=== PATIENT | female | born 1990 | race Two or more races ===

== ENCOUNTER 2018-02-06 06:13 | Emergency (ER) | payer OTHER ==
[2018-02-06 07:13] VITALS: BMI 29.2
[2018-02-06] MEDS ORDERED: ACETAMINOPHEN 325 MG TABLET (FP) PO ONE (09:15)
[2018-02-06] MEDS ORDERED: ACETAMINOPHEN 325 MG TABLET (FP) ONE (09:16)
[2018-02-06 09:36] LABS: BASO % 0.6 % (0-2.0); EOS % 3.2 % (0-4.5); HEMATOCRIT 38.2 % (32.4-45.2); HEMOGLOBIN 12.9 GM/dL (10.7-15.3); LYMPH % 26.6 % (8-40); MCH 33.4 pg (25.7-33.7); MCHC 33.8 g/dl (32.0-36.0); MEAN CELL VOLUME 98.7 fl (80-96); MEAN PLT VOLUME 10.7 fl (7.5-11.1); MONO % 7.3 % (3.8-10.2); NEUT % 62.3 % (42.8-82.8); PLATELET COUNT 129 K/MM3 (134-434); RBC 3.86 M/mm3 (3.60-5.2); RDW 12.1 % (11.6-15.6); WHITE BLOOD COUNT 4.2 K/mm3 (4.0-10.0)
--- NOTE | 2018-02-06 09:40 | EKG ---
Test Reason : Blood Pressure : / mmHG Vent. Rate : 069 BPM Atrial Rate : 069 BPM P-R Int : 152 ms QRS Dur : 082 ms QT Int : 376 ms P-R-T Axes : 040 023 042 degrees QTc Int : 402 ms NORMAL SINUS RHYTHM POSSIBLE LEFT ATRIAL ENLARGEMENT BORDERLINE ECG WHEN COMPARED WITH ECG OF 10-JUN-2016 10:08, NO SIGNIFICANT CHANGE WAS FOUND Confirmed by SERGE ALEXANDER MD ([id number]) on 02/06/2018 9:40:15 AM Referred By: Confirmed By:SERGE ALEXANDER MD
[2018-02-06 10:03] LABS: ALBUMIN 3.4 g/dl (3.4-5.0); ANION GAP 5 (8-16); BLOOD UREA NITROGEN 13 mg/dL (7-18); CHLORIDE 108 mmol/L (98-107); CO2 27 mmol/L (21-32); GLUCOSE,RANDOM 94 mg/dL (74-106); POTASSIUM 4.6 mmol/L (3.5-5.1); SODIUM 140 mmol/L (136-145)
--- NOTE | 2018-02-06 10:07 | PDOC ---
History of Present Illness <Juan Jose Min - Last Filed: 02/06/18 11:10> - History of Present Illness Initial Comments: 02/06/18 10:01 "The patient is a 27 year old female with a significant PMH of Lupus who presents to the emergency department with back pain, chest pain, and left shoulder soreness beginning approximately yesterday. She reports left upper back pain that radiates to her chest and is worse with movement and lying down. Pt denies SOB. Denies pleuritic chest pain. Denies F/C. Denies cough. The patient states she has had similar chest and back pain intermittently over the past few years, which usually resolves on its own. The patient denies taking any medications for pain. The patient denies recent travel or sick contacts. She denies leg swelling. Is not currently on any medications. The patient denies shortness of breath, headache and dizziness. Denies fever, chills, nausea, vomit, diarrhea and constipation. Denies dysuria, frequency, urgency and hematuria. Allergies: NKA Past surgical history: None reported. Social history: Current everyday smoker. No reported alcohol or drug use. PCP: Dr. Blanca Petersen " <Maurilio Raymond - Last Filed: 02/06/18 13:08> - General Chief Complaint: Back Pain Stated Complaint: BACK PAIN Time Seen by Provider: 02/06/18 08:21 Past History <Juan Jose Min - Last Filed: 02/06/18 11:10> - Past Medical History Anemia: No Asthma: No Cancer: No Cardiac Disorders: No COPD: No Diabetes: No HTN: No Seizures: No Thyroid Disease: No Other medical history: LUPUS - Surgical History Abdominal Surgery: No - Suicide/Smoking/Psychosocial Hx Smoking History: Current every day smoker Have you smoked in the past 12 months: No Number of Cigarettes Smoked Daily: 2 Information on smoking cessation initiated: No Hx Alcohol Use: No Drug/Substance Use Hx: No Substance Use Type: None Hx Substance Use Treatment: Yes (H/O Marijuana use.) <Maurilio Raymond - Last Filed: 02/06/18 13:08> - Past Medical History Allergies/Adverse Reactions: Allergies Allergy/AdvReac Type Severity Reaction Status Date / Time No Known Allergies Allergy Verified 02/06/18 07:39 Home Medications: Ambulatory Orders Cephalexin [Keflex] 500 mg PO Q6H #20 capsule 08/24/16 Cephalexin [Keflex] 500 mg PO BID #14 capsule 02/06/18 Naproxen 500 mg PO BID #10 tablet 02/06/18 Review of Systems - Review of Systems Comments:: 02/06/18 10:03 "GENERAL/CONSTITUTIONAL: No fever or chills. No weakness. HEAD, EYES, EARS, NOSE AND THROAT: No change in vision. No ear pain or discharge. No sore throat. CARDIOVASCULAR: (+) Chest pain. No shortness of breath. RESPIRATORY: No cough, wheezing, or hemoptysis. GASTROINTESTINAL: No nausea, vomiting, diarrhea or constipation. GENITOURINARY: No dysuria, frequency, or change in urination. MUSCULOSKELETAL: (+) Back pain. (+) Left shoulder soreness. No joint pain. No neck pain. SKIN: No rash NEUROLOGIC: No headache, vertigo, loss of consciousness, or change in strength/ sensation. ENDOCRINE: No increased thirst. No abnormal weight change. HEMATOLOGIC/LYMPHATIC: No anemia, easy bleeding, or history of blood clots. ALLERGIC/IMMUNOLOGIC: No hives or skin allergy. " <Maurilio Raymond - Last Filed: 02/06/18 13:08> *Physical Exam - Vital Signs Last Vital Signs Temp Pulse Resp BP Pulse Ox 97.5 F L 76 16 114/70 99 02/06/18 07:05 02/06/18 07:05 02/06/18 07:05 02/06/18 07:05 02/06/18 07:05 <Juan Jose Min - Last Filed: 02/06/18 11:10> - Vital Signs Last Vital Signs Temp Pulse Resp BP Pulse Ox 97.5 F L 76 16 114/70 99 02/06/18 07:05 02/06/18 07:05 02/06/18 07:05 02/06/18 07:05 02/06/18 07:05 - Physical Exam Comments: 02/06/18 10:03 "GENERAL: Awake, alert, and fully oriented, in no acute distress. HEAD: No signs of trauma EYES: PERRLA, EOMI, sclera anicteric, conjunctiva clear ENT: Auricles normal inspection, hearing grossly normal, nares patent, oropharynx clear without exudates. Moist mucosa NECK: Nontender, no stepoffs, Normal ROM, supple, no lymphadenopathy, JVD, or masses LUNGS: Breath sounds equal, clear to auscultation bilaterally. No wheezes, and no crackles HEART: Regular rate and rhythm, normal S1 and S2, no murmurs, rubs or gallops ABDOMEN: Soft, nontender, normoactive bowel sounds. No guarding, no rebound. No masses EXTREMITIES: Normal range of motion, no edema. No clubbing or cyanosis. No cords , erythema, or tenderness NEUROLOGICAL: Cranial nerves II through XII intact. 5/5 strength and sensation in all extremities, Normal speech, normal gait, normal cerebellar function SKIN: Warm, Dry, normal turgor, no rashes or lesions noted. <Maurilio Raymond - Last Filed: 02/06/18 13:08> Heart Score/ECG Review - History History: Slightly suspicious - Electrocardiogram EKG: Normal - Age Age: </= 45 - Risk Factors Based on the list above the patient has:: No risk factors known - Troponin Troponin: </= normal limit - Score Heart Score - Total: 0 - ECG Impressions Comment:: 02/06/18 10:06 NSR, no MOHAN/STDS, no TWIs, axis wnl, intervals wnl, no GA depressions, rate 69 <Maurilio Raymond - Last Filed: 02/06/18 13:08> ED Treatment Course - LABORATORY CBC & Chemistry Diagram: 02/06/18 09:28 02/06/18 09:28 - ADDITIONAL ORDERS Additional order review: Laboratory Results 02/06/18 02/06/18 02/06/18 09:50 09:50 09:28 Sodium 140 Potassium 4.6 Chloride 108 H Carbon Dioxide 27 Anion Gap 5 L BUN 13 Creatinine 0.8 Creat Clearance w eGFR > 60 Random Glucose 94 Calcium 8.7 Total Bilirubin 0.6 D AST 18 ALT 20 Alkaline Phosphatase 58 Total Protein 7.4 Albumin 3.4 Urine Color Ltyellow Urine Appearance Clear Urine pH 5.0 Ur Specific [place] 1.025 Urine Protein Negative Urine Glucose (UA) Negative Urine Ketones Negative Urine Blood Negative Urine Nitrite Negative Urine Bilirubin Negative Urine Urobilinogen 2.0 H Ur Leukocyte Esterase Trace Urine WBC (Auto) 13 Urine RBC (Auto) 6 Ur Epithelial Cells Rare Urine Mucus Rare Urine HCG, Qual Negative 02/06/18 09:28 RBC 3.86 MCV 98.7 H MCHC 33.8 RDW 12.1 MPV 10.7 Neutrophils % 62.3 Lymphocytes % 26.6 D Monocytes % 7.3 Eosinophils % 3.2 D Basophils % 0.6 - Medications Given in the ED: ED Medications Discontinued Medications Generic Name Dose Route Start Last Admin Trade Name Freq PRN Reason Stop Dose Admin Acetaminophen 650 mg 02/06/18 09:15 02/06/18 09:28 Tylenol - PO 02/06/18 09:16 650 mg ONCE ONE Administration <Juan Jose Min - Last Filed: 02/06/18 11:10> - LABORATORY CBC & Chemistry Diagram: 02/06/18 09:28 02/06/18 09:28 - ADDITIONAL ORDERS Additional order review: 02/06/18 09:28 RBC 3.86 MCV 98.7 H MCHC 33.8 RDW 12.1 MPV 10.7 Neutrophils % 62.3 Lymphocytes % 26.6 D Monocytes % 7.3 Eosinophils % 3.2 D Basophils % 0.6 - RADIOLOGY Radiology Studies Ordered: Category Date Time Status CHEST PA & LAT [RAD] Stat Radiology 02/06/18 08:45 Ordered - Medications Given in the ED: ED Medications Discontinued Medications Generic Name Dose Route Start Last Admin Trade Name Freq PRN Reason Stop Dose Admin Acetaminophen 650 mg 02/06/18 09:15 02/06/18 09:28 Tylenol - PO 02/06/18 09:16 650 mg ONCE ONE Administration <Maurilio Raymond - Last Filed: 02/06/18 13:08> Medical Decision Making - Medical Decision Making 02/06/18 10:06 27 F with positional chest, back, and L shoulder pain. Likely MSK in etiology. Will r/o ACS, though pt with no risk factors and normal EKG. PE unlikely as pt has PERC score of 0 and no clinical signs of DVT, normal vitals. Pain is also inconsistent with PE as it is intermittent over the course of years. - Labs, trop - CXR - Tylenol 02/06/18 12:43 Labs wnl CXR clear Pt reassessed - now reports improved pain with tylenol and toradol. Pt is well appearing, with normal vitals. Clinically stable for DC at this time. I discussed the physical exam findings, ancillary test results and final diagnoses with the patient. I answered all of the patient's questions. The patient was satisfied with the care received and felt comfortable with the discharge plan and treatment plan. The patient agrees to follow up with the primary care physician within 24-72 hours. <Maurilio Raymond - Last Filed: 02/06/18 13:08> *DC/Admit/Observation/Transfer - Attestations Scribe Attestion: 02/06/18 11:10 Documentation prepared by Juan Jose Min, acting as medical support specialist for Maurilio Raymond MD. <Juan Jose Min - Last Filed: 02/06/18 11:10> - Attestations Physician Attestion: 02/06/18 12:44 I, Dr. Maurilio Raymond MD, attest that this document has been prepared under my direction and personally reviewed by me in its entirety. I further attest, that it accurately reflects all work, treatment, procedures and medical decision -making performed by me. <Maurilio Raymond - Last Filed: 02/06/18 13:08> Diagnosis at time of Disposition: Chest pain - Discharge Dispostion Disposition: HOME - Prescriptions Prescriptions: Cephalexin [Keflex] 500 mg PO BID #14 capsule Naproxen 500 mg PO BID #10 tablet - Referrals Referrals: Blanca Petersen [Primary Care Provider] - Miki Reddy MD [Staff Physician] - - Patient Instructions Printed Discharge Instructions: DI for Atypical Chest Pain Additional Instructions: You may have a urinary tract infection. Take the antibiotics as prescribed to treat it. Please follow up with a cafeteria cashier for management of your lupus. Call the number provided to make an appointment with our cafeteria cashier within 1 week. If you experience worsening pain, shortness of breath, or any other concerning symptoms, return to the ER immediately. - Post Discharge Activity Forms/Work/School Notes: Back to Work
[2018-02-06 10:10] LABS: URINE APPEARANCE CLEAR; URINE BILIRUBIN NEGATIVE (<2.0 mg/dL); URINE COLOR LTYELLOW; URINE GLUCOSE (UA) NEGATIVE (NEGATIVE); URINE KETONE NEGATIVE (NEGATIVE); URINE LEUK ESTERASE TRACE (NEGATIVE); URINE NITRITE NEGATIVE (NEGATIVE); URINE PROTEIN NEGATIVE (NEGATIVE)
[2018-02-06 10:35] LABS: EPI CELLS RARE /HPF (FEW); URINE MUCUS RARE
[2018-02-06 10:38] LABS: ALK PHOS 58 U/L (45-117); BILIRUBIN,TOTAL 0.6 mg/dL (0.2-1.0); CALCIUM 8.7 mg/dL (8.5-10.1); CREATININE 0.8 mg/dL (0.55-1.02); SGOT/AST 18 U/L (15-37); SGPT/ALT 20 U/L (12-78); TOT PROT 7.4 g/dl (6.4-8.2)
[2018-02-06] MEDS ORDERED: KETOROLAC TROMETHAMINE 30 MG/1 ML VIAL ONE (10:50)
[2018-02-06] MEDS: KETOROLAC TROMETHAMINE 30 MG/1 ML VIAL IM ONE ×2 (10:50→10:51)
[2018-02-06 13:17] VITALS: BP 124/59; PULSE 72; TEMP 98.1
== END 2018-02-06 13:19 | disposition home or self-care (01) ==
LOC: JER 06:13
PROC: 3E0233Z Introduction of Anti-inflammatory into Muscle, Percutaneous Approach (ICD-10-PCS; principal; 2018-02-06)
DX: R07.9 Chest pain, unspecified (principal)
CPT/HCPCS: 36415; 71046-TC-FY; 80053; 81003; 81015; 82550; 84484; 84703; 85025; 93005; 93010; 99283-25

== ENCOUNTER 2018-05-20 07:14 | Emergency (ER) | payer OTHER ==
[2018-05-20 07:25] VITALS: BP 126/80; PULSE 79; TEMP 98.3; BMI 29.9
--- NOTE | 2018-05-20 08:02 | PDOC ---
History of Present Illness - General Chief Complaint: Headache Stated Complaint: HEADACHE Time Seen by Provider: 05/20/18 08:01 History Source: Patient Exam Limitations: No Limitations - History of Present Illness Initial Comments: 05/20/18 08:01 Ms Pang is a 27 yo F h/o Lupus who presents to the ER due to the Er with a complaint of tooth pain Pt states her symptoms began yesterday Pain is sharp, located in the left mandibular region No associated fever or chills No dental trauma Pt was seen in the ER previously with similar symptoms due to pain in the right tooth She has taken tylenol and Used orajel with no relief She has a dental appointment scheduled for 2 weeks PMH: Lupus PSH: Denies Meds: Denies ALL: NKDA Social: FH: non contributory to today's issue GENERAL/CONSTITUTIONAL: No: fever, chills HEAD, EYES, EARS, NOSE AND THROAT: Yes: dental pain No: sore throat, throat swelling. CARDIOVASCULAR: No: chest pain, lightheadedness, palpitations, syncope RESPIRATORY: No: cough, shortness of breath GASTROINTESTINAL: No: nausea, vomiting, diarrhea, abdominal pain GENITOURINARY: No: dysuria, hematuria MUSCULOSKELETAL: No: back pain, neck pain, joint pain SKIN: No: lesions, pallor, rash or easy bruising. NEUROLOGIC: Yes: headache No: vertigo, paresthesias, weakness ENDOCRINE: No: unexplained weight gain or loss HEMATOLOGIC/LYMPHATIC: No: anemia, easy bleeding, swelling nodes. PE: GENERAL: The patient is in no acute distress. HEAD: Normal with no signs of trauma. EYES: PERRLA, EOMI, sclera anicteric, conjunctiva clear. ENT: Ears normal, nares patent, oropharynx clear without exudates. Moist mucous membranes. Swelling noted in the back of the mandible, this area is tender to palpation, no erythema Tooth 26 is completely blackened??? NO FACIAL swelling NECK: Normal range of motion, supple without lymphadenopathy LUNGS: Breath sounds equal, clear to auscultation bilaterally. No wheezes, and no crackles. HEART:Regular rate and rhythm, normal S1 and S2 (+) SORAYA ABDOMEN: Soft, nontender, normoactive bowel sounds. No guarding, no rebound. EXTREMITIES: Normal range of motion, no edema. NEUROLOGICAL: Cranial nerves II through XII grossly intact. Normal speech. No focal neurological deficits. MUSCULOSKELETAL: Back non-tender to palpation, no CVA tenderness SKIN: Warm, Dry, normal turgor, no rashes or lesions noted. 05/20/18 08:02 05/20/18 08:13 05/20/18 08:18 Past History - Past Medical History Allergies/Adverse Reactions: Allergies Allergy/AdvReac Type Severity Reaction Status Date / Time No Known Allergies Allergy Verified 05/20/18 07:21 Home Medications: Ambulatory Orders Amoxicillin/Potassium Clav [Augmentin 875-125 Tablet] 1 each PO BID #14 tablet 05/20/18 Naproxen Sodium 220 mg PO BID PRN #30 tablet 05/20/18 Naproxen [Naprosyn -] 500 mg PO TID PRN 05/20/18 Oxycodone HCl/Acetaminophen [Percocet 5-325 mg Tablet -] 1 tab PO TID PRN #12 tablet MDD 3 05/20/18 Anemia: No Asthma: No Cancer: No Cardiac Disorders: No CVA: No COPD: No Diabetes: No HTN: No Seizures: No Thyroid Disease: No - Surgical History Abdominal Surgery: No - Immunization History Immunization Up to Date: Yes - Suicide/Smoking/Psychosocial Hx Smoking History: Never smoked Have you smoked in the past 12 months: No Number of Cigarettes Smoked Daily: 2 Information on smoking cessation initiated: No 'Breaking Loose' booklet given: 04/02/18 Hx Alcohol Use: No Drug/Substance Use Hx: No Substance Use Type: None Hx Substance Use Treatment: Yes (H/O Marijuana use.) *Physical Exam - Vital Signs Last Vital Signs Temp Pulse Resp BP Pulse Ox 98.3 F 79 15 126/80 100 05/20/18 07:21 05/20/18 07:21 05/20/18 07:21 05/20/18 07:21 05/20/18 07:21 Medical Decision Making - Medical Decision Making 05/20/18 08:16 27 yo F presenting to the ER with 1 day of dental pain with associated headache no fevers or chills Will give abx Will give pain medications Follow up with Dentist Return to the ER for any other concerns or complaints *DC/Admit/Observation/Transfer Diagnosis at time of Disposition: Toothache - Discharge Dispostion Disposition: HOME Condition at time of disposition: Stable Decision to Admit order: No - Prescriptions Prescriptions: Amoxicillin/Potassium Clav [Augmentin 875-125 Tablet] 1 each PO BID #14 tablet Naproxen Sodium 220 mg PO BID PRN #30 tablet PRN Reason: Pain Oxycodone HCl/Acetaminophen [Percocet 5-325 mg Tablet -] 1 tab PO TID PRN #12 tablet MDD 3 PRN Reason: Severe Pain - Referrals - Patient Instructions Printed Discharge Instructions: DI for Impacted Tooth, DI for Dental Pain Additional Instructions: Ms Pang Thank you for coming in to the ER today Please keep mouth clean and rinse after each meal. Continue over the counter medications for pain - Oragel Please take Augmentin twice daily Take Naproxen (as prescribed for pain) May use Percocet 1 tab every 8 hours as needed for severe pain See Dentist As SOON POSSIBLE (call dental urgent care TODAY) Return to the ER for fevers, chills, facial swelling any other concerns or complaints - Post Discharge Activity Forms/Work/School Notes: Back to Work
== END 2018-05-20 08:37 | disposition home or self-care (01) ==
LOC: JER 07:14
DX: K08.89 Other specified disorders of teeth and supporting structures (principal)
CPT/HCPCS: 99281-25

== ENCOUNTER 2018-07-19 05:16 | Emergency (ER) | payer OTHER ==
--- NOTE | 2018-07-19 05:36 | PDOC ---
History of Present Illness - General Chief Complaint: Toothache Stated Complaint: TOOTHACHE Time Seen by Provider: 07/19/18 05:24 History Source: Patient - History of Present Illness Initial Comments: 07/19/18 05:52 28 year old female with right #4 tooth decay as per patient dentist told her she needs a root canal now with increased pain to the area.denies fever/ chills , facial swelling 07/22/18 19:46 Past History - Past Medical History Allergies/Adverse Reactions: Allergies Allergy/AdvReac Type Severity Reaction Status Date / Time No Known Allergies Allergy Verified 07/19/18 05:38 Home Medications: Ambulatory Orders NK [No Known Home Medication] 07/19/18 Anemia: No Asthma: No Cancer: No Cardiac Disorders: No CVA: No COPD: No Diabetes: No HTN: No Seizures: No Thyroid Disease: No - Surgical History Abdominal Surgery: No - Immunization History Immunization Up to Date: Yes - Suicide/Smoking/Psychosocial Hx Smoking History: Current every day smoker Have you smoked in the past 12 months: No Number of Cigarettes Smoked Daily: 2 'Breaking Loose' booklet given: 04/02/18 Hx Alcohol Use: No Drug/Substance Use Hx: No Substance Use Type: None Hx Substance Use Treatment: Yes (H/O Marijuana use.) Review of Systems - Review of Systems Able to Perform ROS?: Yes Is the patient limited [place] proficient: No Constitutional: No: Symptoms Reported, See HPI, Chills, Diaphoresis, Fever, Loss of Appetite, Malaise, Night Sweats, Weakness, Weight Stable, Unintentional Wgt. Loss, Unexplained wgt Loss, Other HEENTM: Yes: Dental Problems *Physical Exam - Vital Signs 07/19/18 05:57 Vital Signs Temperature 98.7 F 07/19/18 05:16 Pulse Rate 88 07/19/18 05:16 Respiratory Rate 18 07/19/18 05:16 Blood Pressure 121/59 L 07/19/18 05:16 O2 Sat by Pulse Oximetry (%) 100 07/19/18 05:16 - Physical Exam General Appearance: Yes: Appropriately Dressed HEENT: positive: Other (right upper #4 with dental caries. poor dentition throughout. no trismus) Respiratory/Chest: positive: Lungs Clear, Normal Breath Sounds, Respiratory Distress Integumentary: positive: Normal Color, Dry, Warm Neurologic: positive: Fully Oriented, Alert, Normal Mood/Affect Medical Decision Making - Medical Decision Making dental infection p: augmentin pain control patient to follow up with dentist *DC/Admit/Observation/Transfer Diagnosis at time of Disposition: Dental caries, Infected dental caries - Discharge Dispostion Disposition: HOME Condition at time of disposition: Fair - Referrals Referrals: [facility] [Outside] - Patient Instructions Printed Discharge Instructions: DI for Tooth Abscess Additional Instructions: take ibuprofen every6 hours as needed for moderate pain take percocet for severe pain take augmentin as prescribed. follow up with your dentist as soon as possible. - Post Discharge Activity Forms/Work/School Notes: Back to Work
[2018-07-19 05:38] VITALS: BMI 29.2
[2018-07-19] MEDS ORDERED: IBUPROFEN 600 MG TABLET (FP) PO ONE ×2 (05:58→06:06)
[2018-07-19] MEDS ORDERED: AMOX TR/POT CLAV 875MG/125MG TABLETS (FP) PO ONE (05:58)
[2018-07-19] MEDS ORDERED: AMOX TR/POT CLAV 875MG/125MG TABLETS (FP) ONE (06:06)
[2018-07-19 06:13] VITALS: BP 116/83; PULSE 78; TEMP 98.9
== END 2018-07-19 07:01 | disposition home or self-care (01) ==
LOC: JER 05:16
DX: K02.9 Dental caries, unspecified (principal); K04.7 Periapical abscess without sinus
CPT/HCPCS: 99281-25

== ENCOUNTER 2018-08-02 17:48 | Emergency (ER) | payer OTHER ==
[2018-08-02 18:13] VITALS: BP 125/84; PULSE 99; TEMP 98.5; BMI 29.9
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
[2018-08-02] MEDS ORDERED: KETOROLAC TROMETHAMINE 60 MG/2 ML VIAL IM ONE (19:29)
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
[2018-08-02] MEDS ORDERED: KETOROLAC TROMETHAMINE 60 MG/2 ML VIAL ONE (19:35)
== END 2018-08-02 19:45 | disposition home or self-care (01) ==
LOC: JERFT 17:48
DX: K08.89 Other specified disorders of teeth and supporting structures (principal); M27.3 Alveolitis of jaws
CPT/HCPCS: 99281-25

== ENCOUNTER 2018-09-13 21:16 | Emergency (ER) | payer OTHER ==
[2018-09-13 21:21] VITALS: BP 130/83; PULSE 132; TEMP 97.4; BMI 28.3
--- NOTE | 2018-09-13 21:23 | PDOC ---
Rapid Medical Evaluation Time Seen by Provider: 09/13/18 21:17 Medical Evaluation: Allergies Allergy/AdvReac Type Severity Reaction Status Date / Time No Known Allergies Allergy Verified 08/02/18 18:10 09/13/18 21:17 I have performed a brief in-person evaluation of this patient. The patient presents with a chief complaint of: Hemorrhoids, seen in the ER at [facility] 4 days ago for same. Currently using rectal supp, sitting in sitz bath and taking anti-inflammatory meds w/ no relief. Also taking otc stool softeners. States pain is so severe that she is unable to defecate, sit or walk Pertinent physical exam findings:mele uncomfortable, tachy to 130s I have ordered the following:nothing The patient will proceed to the ED for further evaluation. Discharge Disposition - Diagnosis Hemorrhoid Qualifiers: Hemorrhoid type: unspecified Qualified Code(s): K64.9 - Unspecified hemorrhoids - Referrals - Patient Instructions - Post Discharge Activity
--- NOTE | 2018-09-13 21:39 | PDOC ---
Attending Attestation - HPI HPI: 09/13/18 22:22 The patient is a 28 year old female, with a significant PMH of lupus, who presents to the emergency department with external hemorrhoids. The patient states she was evaluated at another hospital 4 days ago for the same complaint of hemorrhoids and discharged from the ED with suppositories, cream, stool softener, Motrin and Tramadol for which she has been using with minimal relief. The patient states she has pain with ambulation and difficulty sitting secondary to the hemorrhoids. The patient states she has not had a bowel movement in 5 days. The patient denies chest pain, shortness of breath, headache and dizziness. Denies fever, chills, nausea, vomit, constipation and diarrhea. Denies dysuria, frequency, urgency and hematuria. Allergies: NKA Documentation prepared by Adalberto Patton, acting as medical payment poster for Jennifer Dennison MD. - Physicial Exam PE: 09/13/18 23:16 GENERAL: Awake, alert, and fully oriented, in no acute distress HEAD: No signs of trauma EYES: PERRLA, EOMI, sclera anicteric, conjunctiva clear ENT: Auricles normal inspection, hearing grossly normal, nares patent, oropharynx clear without exudates. Moist mucosa NECK: Normal ROM, supple, no lymphadenopathy, JVD, or masses LUNGS: Breath sounds equal, clear to auscultation bilaterally. No wheezes, and no crackles HEART: Regular rate and rhythm, normal S1 and S2, no murmurs, rubs or gallops ABDOMEN: Soft, nontender, normoactive bowel sounds. No guarding, no rebound. No masses RECTAL: (+) Large hemorrhoid 1.5 cm long and .25 cm wide, pink. Not blue, not thrombosed. EXTREMITIES: Normal range of motion, no edema. No clubbing or cyanosis. No cords, erythema, or tenderness NEUROLOGICAL: Cranial nerves II through XII grossly intact. Normal speech. SKIN: Warm, Dry, normal turgor, no rashes or lesions noted. <Adalberto Patton - Last Filed: 09/13/18 23:16> - Resident Resident Name: Cely Paulino - ED Attending Attestation I have performed the following: I have examined & evaluated the patient, The case was reviewed & discussed with the resident, I agree w/resident's findings & plan - Medical Decision Making 09/13/18 22:03 Others' Prescriptions Patient Name: Nancy Pang Date: 1990 Address: [place] [address] Sex: Female Rx Written Rx Dispensed Drug Quantity Days Supply Prescriber Name 08/07/2018 08/07/2018 oxycodone-acetaminophen 5-325 mg tab 10 3 Iwona Toscano Patient Name: Nancy Pang Date: 1990 Address: [address] [place] [address] [address] [place] [address] Sex: Female Rx Written Rx Dispensed Drug Quantity Days Supply Prescriber Name 07/19/2018 07/19/2018 oxycodone-acetaminophen 5-325 mg tablet 7 2 Aniyah Sherman Patient Name: Nancy Pang Date: 1990 Address: [place] [address] Sex: Female Rx Written Rx Dispensed Drug Quantity Days Supply Prescriber Name 07/04/2018 07/04/2018 oxycodone-acetaminophen 5-325 mg tab 10 3 Martine Muse 06/18/2018 06/18/2018 acetaminophen-cod #3 tablet 15 4 Martine Muse 05/20/2018 05/20/2018 oxycodone-acetaminophen 5-325 mg tab 12 4 Vikki Em 04/02/2018 04/02/2018 oxycodone-acetaminophen 5-325 mg tab 7 2 Carmella Durant [employer] 09/14/18 06:50 Pt has a normal looking (non-thrombosed, pink not blue) hemorrhoid at 12 o clock. Pt wants strong pain meds. She is however refusing viscous lidocaine to the area. She earlier refused glycerine suppository as well as miralax. I explained to pt that I would not give her narcotics for hemorrhoids, and she is upset. Pt can take OTC pain meds and follow with gen surg clinic. <Jennifer Dennison - Last Filed: 09/14/18 06:54>
--- NOTE | 2018-09-13 21:40 | PDOC ---
History of Present Illness - General History Source: Patient Exam Limitations: No Limitations - History of Present Illness Initial Comments: 09/13/18 22:48 This is a 28 yo f with pmh of hemorrhods, who presents to ED due to severely painful external hemorrhoids x 5d. She was dcd from [facility] 4 d ago for the same issue and was advised to use otc medicine. Despite using suppository, hemorrhoid cream, laxatives, sitz bath and taking ibuprofen, she continues to have severe pain, unable to sit, lie flat, having to urinate standing up. She first developed hemorrhoids during her several years ago but has not had a severe flare up like this one. she us usually up on her feet at work and does not sit for prolonged periods of time. Last BM was 5 d ago because patient is afraid to defecate due to pain. She joanne f/c, constipation, hematochezia, dysuria, abd pain, n/v, h/a, malaise. denies prior surgery 09/13/18 22:49 09/13/18 22:54 <Cely Paulino - Last Filed: 09/13/18 23:18> <Jennifer Dennison - Last Filed: 09/13/18 23:32> - General Chief Complaint: Hemorrhoids Stated Complaint: Hemorrhoids Time Seen by Provider: 09/13/18 21:17 Past History - Past Medical History Anemia: No Asthma: No Cancer: No Cardiac Disorders: No CVA: No COPD: No Diabetes: No HTN: No Seizures: No Thyroid Disease: No - Surgical History Abdominal Surgery: No - Immunization History Immunization Up to Date: Yes - Suicide/Smoking/Psychosocial Hx Smoking History: Never smoked Have you smoked in the past 12 months: No Number of Cigarettes Smoked Daily: 2 'Breaking Loose' booklet given: 04/02/18 Hx Alcohol Use: No Drug/Substance Use Hx: No Substance Use Type: None Hx Substance Use Treatment: Yes (H/O Marijuana use.) <Cely Paulino - Last Filed: 09/13/18 23:18> <Jennifer Dennison - Last Filed: 09/13/18 23:32> - Past Medical History Allergies/Adverse Reactions: Allergies Allergy/AdvReac Type Severity Reaction Status Date / Time No Known Allergies Allergy Verified 09/13/18 21:21 Home Medications: Ambulatory Orders Naproxen [Naprosyn -] 500 mg PO BID #30 tablet 08/02/18 Review of Systems - Review of Systems Able to Perform ROS?: Yes Is the patient limited Romansh proficient: No Constitutional: No: Chills, Fever Respiratory: No: Cough, Shortness of Breath Cardiac (ROS): No: Chest Pain, Lightheadedness, Palpitations ABD/GI: No: Abdominal Distended, Diarrhea, Nausea, Vomiting, Abdominal cramping Musculoskeletal: No: Back Pain Neurological: No: Headache <LoraCely - Last Filed: 09/13/18 23:18> *Physical Exam - Vital Signs Last Vital Signs Temp Pulse Resp BP Pulse Ox 97.4 F L 132 H 18 130/83 100 09/13/18 21:17 09/13/18 21:17 09/13/18 21:17 09/13/18 21:17 09/13/18 21:17 - Physical Exam General Appearance: Yes: Nourished, Appropriately Dressed, Mild Distress HEENT: positive: EOMI, Normal Voice, Symmetrical. negative: Scleral Icterus (R) , Scleral Icterus (L) Neck: positive: Supple Respiratory/Chest: positive: Lungs Clear, Normal Breath Sounds Cardiovascular: positive: Regular Rhythm, Regular Rate, S1, S2 Gastrointestinal/Abdominal: positive: Normal Bowel Sounds, Flat, Soft. negative : Tender, Organomegaly, Tenderness, Mass Rectal Exam: positive: hemorrhoids (12 oclock 1 cm pink soft hemorrhoid, no evidence of thrombosis, painful) Musculoskeletal: negative: CVA Tenderness Integumentary: positive: Dry, Warm Neurologic: positive: blueprint developer II-XII NML intact (grossly) <LoraCely - Last Filed: 09/13/18 23:18> - Vital Signs Last Vital Signs Temp Pulse Resp BP Pulse Ox 97.4 F L 132 H 18 130/83 100 09/13/18 21:17 09/13/18 21:17 09/13/18 21:17 09/13/18 21:17 09/13/18 21:17 <Jennifer Dennison - Last Filed: 09/13/18 23:32> Moderate Sedation - Procedure Monitoring Vital Signs: Procedure Monitoring Vital Signs Temperature 97.4 F L 09/13/18 21:17 Pulse Rate 132 H 09/13/18 21:17 Respiratory Rate 18 09/13/18 21:17 Blood Pressure 130/83 09/13/18 21:17 O2 Sat by Pulse Oximetry (%) 100 09/13/18 21:17 <Cely Paulino - Last Filed: 09/13/18 23:18> - Procedure Monitoring Vital Signs: Procedure Monitoring Vital Signs Temperature 97.4 F L 09/13/18 21:17 Pulse Rate 132 H 09/13/18 21:17 Respiratory Rate 18 09/13/18 21:17 Blood Pressure 130/83 09/13/18 21:17 O2 Sat by Pulse Oximetry (%) 100 09/13/18 21:17 <Jennifer Dennison - Last Filed: 09/13/18 23:32> ED Treatment Course - LABORATORY CBC & Chemistry Diagram: 09/13/18 22:30 09/13/18 22:30 - ADDITIONAL ORDERS Additional order review: 09/13/18 23:16 patient has nonthrombosed external hemorrhoid that is not responsive to otc treatments, however, patient has not had bm in 5 d despite reporting laxative use. she refuses miralax, ivf, suppository of topical lidocaine in the ED. She is not a candidate for emergent hemorrhoidectomy in ed. Will dc patient and recommend laxatives, tylenol and topical otc tretments. <Cely Paulino - Last Filed: 09/13/18 23:18> - LABORATORY CBC & Chemistry Diagram: 09/13/18 22:30 09/13/18 22:30 - ADDITIONAL ORDERS Additional order review: Laboratory Results 09/13/18 22:30 Sodium 140 Potassium 4.4 Chloride 106 Carbon Dioxide 27 Anion Gap 7 L BUN 11 Creatinine 0.8 Creat Clearance w eGFR > 60 Random Glucose 89 Calcium 8.9 Total Bilirubin 0.5 AST 16 ALT 15 Alkaline Phosphatase 76 Total Protein 8.5 H Albumin 3.9 09/13/18 22:30 RBC 3.93 MCV 99.2 H MCHC 34.4 RDW 11.9 MPV 10.3 Neutrophils % 73.9 Lymphocytes % 17.7 D Monocytes % 6.7 Eosinophils % 0.9 Basophils % 0.8 <Jennifer Dennison - Last Filed: 09/13/18 23:32> *DC/Admit/Observation/Transfer - Discharge Dispostion Decision to Admit order: No <Cely Paulino - Last Filed: 09/13/18 23:18> <Jennifer Dennison - Last Filed: 09/13/18 23:32> Diagnosis at time of Disposition: Hemorrhoid Qualifiers: Hemorrhoid type: unspecified Qualified Code(s): K64.9 - Unspecified hemorrhoids - Discharge Dispostion Disposition: HOME Condition at time of disposition: Good - Patient Instructions Additional Instructions: you have an external hemorrhoid, without a blood clot in it. Best course of action is to continue laxatives, sitz bath, hemorrhoid cream and tylenol. please avoid prolonged sitting. follow up with a primary doctor across the street in [facility]. - Post Discharge Activity Forms/Work/School Notes: Back to Work
[2018-09-13] MEDS ORDERED: SODIUM CHLORIDE 0.9% 500 ML INFUS.BAG IV ONE (21:58)
[2018-09-13] MEDS ORDERED: POLYETHYLENE GLYCOL 3350 119 GM BTL PO ONE (21:58)
[2018-09-13] MEDS ORDERED: GLYCERIN 1 RECTAL SUPPOSITORY, ADULT PR PRN (21:58)
[2018-09-13] MEDS ORDERED: GLYCERIN 1 RECTAL SUPPOSITORY, ADULT RC ONE (22:30)
[2018-09-13 22:36] LABS: BASO % 0.8 % (0-2.0); EOS % 0.9 % (0-4.5); HEMOGLOBIN 13.4 GM/dL (10.7-15.3); LYMPH % 17.7 % (8-40); MCH 34.1 pg (25.7-33.7); MCHC 34.4 g/dl (32.0-36.0); MEAN CELL VOLUME 99.2 fl (80-96); MEAN PLT VOLUME 10.3 fl (7.5-11.1); MONO % 6.7 % (3.8-10.2); NEUT % 73.9 % (42.8-82.8); PLATELET COUNT 146 K/MM3 (134-434); RBC 3.93 M/mm3 (3.60-5.2); RDW 11.9 % (11.6-15.6); WHITE BLOOD COUNT 7.8 K/mm3 (4.0-10.0)
[2018-09-13 23:11] LABS: ALBUMIN 3.9 g/dl (3.4-5.0); ALK PHOS 76 U/L (45-117); ANION GAP 7 MMOL/L (8-16); BILIRUBIN,TOTAL 0.5 mg/dL (0.2-1); BLOOD UREA NITROGEN 11 mg/dL (7-18); CALCIUM 8.9 mg/dL (8.5-10.1); CHLORIDE 106 mmol/L (98-107); CO2 27 mmol/L (21-32); CREATININE 0.8 mg/dL (0.55-1.3); GLUCOSE,RANDOM 89 mg/dL (74-106); POTASSIUM 4.4 mmol/L (3.5-5.1); SGOT/AST 16 U/L (15-37); SGPT/ALT 15 U/L (13-61); SODIUM 140 mmol/L (136-145); TOT PROT 8.5 g/dl (6.4-8.2)
[2018-09-13] MEDS ORDERED: LIDOCAINE HCL 2% JELLY (30 ML/TUBE) TP ONE (23:13)
[2018-09-13] MEDS ORDERED: LIDOCAINE VISCOUS 2% ORAL/TOP 20 ML UNIT-DOSE CUP ONE (23:21)
[2018-09-13] MEDS ORDERED: BENZOCAINE 28 GM HEMORRHOIDAL OINTMENT TP ONE (23:30)
== END 2018-09-13 23:50 | disposition home or self-care (01) ==
LOC: JER 21:16
DX: K64.9 Unspecified hemorrhoids (principal)
CPT/HCPCS: 36415; 80053; 85025; 99282-25

== ENCOUNTER 2019-02-07 16:54 | Emergency (ER) | payer OTHER | END 2019-02-07 19:05 | disposition home or self-care (01) | LOC: JERFT 16:54 ==

== ENCOUNTER 2019-05-06 18:16 | Emergency (ER) | payer OTHER ==
[2019-05-06 18:27] VITALS: BP 105/70; PULSE 90; TEMP 98.2; BMI 28.3
--- NOTE | 2019-05-06 18:41 | PDOC ---
Rapid Medical Evaluation Chief Complaint: Chest Pain Medical Evaluation: Allergies Allergy/AdvReac Type Severity Reaction Status Date / Time No Known Allergies Allergy Verified 02/07/19 17:09 Vital Signs Temp Pulse Resp BP Pulse Ox 98.2 F 90 14 105/70 100 05/06/19 18:23 05/06/19 18:23 05/06/19 18:23 05/06/19 18:23 05/06/19 18:23 05/06/19 18:40 The patient presents with a chief complaint of: rt sided cp worse with breathing radiating to rt upper back I have performed a brief in-person evaluation of this patient. Pertinent physical exam findings: reproducible right upper cp and scapular region I have ordered the following: toradol The patient will proceed to the ED for further evaluation. Discharge Disposition - Diagnosis Chest pain - Discharge Dispostion Last Admission D/C Date: 09/19/15 - Referrals - Patient Instructions - Post Discharge Activity
[2019-05-06] MEDS ORDERED: KETOROLAC TROMETHAMINE 60 MG/2 ML VIAL IM ONE (18:42)
[2019-05-06] MEDS ORDERED: KETOROLAC TROMETHAMINE 60 MG/2 ML VIAL ONE (19:23)
--- NOTE | 2019-05-06 19:24 | PDOC ---
History of Present Illness - General Chief Complaint: Chest Pain Stated Complaint: RT SHOULDER/BACK PAIN Time Seen by Provider: 05/06/19 18:46 - History of Present Illness Initial Comments: 05/06/19 19:21 28 y/o F with PMH of Lupus, presents for evaluation of L sided chest pain x1 day she has had this pain in the past. 05/06/19 19:22 Past History - Past Medical History Allergies/Adverse Reactions: Allergies Allergy/AdvReac Type Severity Reaction Status Date / Time No Known Allergies Allergy Verified 02/07/19 17:09 Home Medications: Ambulatory Orders Cyclobenzaprine HCl [Flexeril 10 mg] 10 mg PO TID PRN #15 tablet 02/07/19 Anemia: No Asthma: No Cancer: No Cardiac Disorders: No CVA: No COPD: No CHF: No Diabetes: No HTN: No Hypercholesterolemia: No Liver Disease: No Seizures: No Thyroid Disease: No Other medical history: LUPUS - Surgical History Abdominal Surgery: No - Immunization History Immunization Up to Date: Yes - Suicide/Smoking/Psychosocial Hx Smoking History: Never smoked Have you smoked in the past 12 months: No Number of Cigarettes Smoked Daily: 2 'Breaking Loose' booklet given: 04/02/18 Hx Alcohol Use: No Drug/Substance Use Hx: No Substance Use Type: Alcohol, Marijuana Hx Substance Use Treatment: Yes (new focus ) *Physical Exam - Vital Signs Last Vital Signs Temp Pulse Resp BP Pulse Ox 98.2 F 90 14 105/70 100 05/06/19 18:23 05/06/19 18:23 05/06/19 18:23 05/06/19 18:23 05/06/19 18:23 - Physical Exam Comments: 05/06/19 19:22 HEAD: NC/AT EYES: Conjuntiva clear Ears: Canals and TM's normal NOSE: No d/c THROAT: Moist mucous membrances, oral pharanx clear, uvula midline NECK: Supple without adenopathy CARDIAC: S1 S2 mild tenderness about CC juntion of ribs 3 and 4 LUNGS: CTA Full and Equal breath sounds ABDOMEN: Soft NT ND MS: Full ROM in all joints without edema NEUROLOGIC: No gross sensory or motor deficits, NVID SKIN: Normal color and temperature no lesions or rashes ED Treatment Course - RADIOLOGY Radiology Studies Ordered: Category Date Time Status CHEST PA & LAT [RAD] Stat Radiology 05/06/19 18:48 Taken Medical Decision Making - Medical Decision Making 05/06/19 19:23 Very reproducible CP hx of prior CXR and EKG Ok EKG reviewed by ER attending. *DC/Admit/Observation/Transfer Diagnosis at time of Disposition: Chest pain, Costochondral chest pain - Discharge Dispostion Disposition: HOME Condition at time of disposition: Stable Decision to Admit order: No - Referrals Referrals: Christiana Latham MD [Staff Physician] - - Patient Instructions Printed Discharge Instructions: DI for Atypical Chest Pain, DI for Chest Pain Additional Instructions: Return to the emergency room should symptoms worsen. Please follow up with your primary care physician in 1-2 days without fail for further evaluation and treatment options - Post Discharge Activity
--- NOTE | 2019-05-07 13:28 | EKG ---
Test Reason : Blood Pressure : / mmHG Vent. Rate : 089 BPM Atrial Rate : 089 BPM P-R Int : 156 ms QRS Dur : 086 ms QT Int : 352 ms P-R-T Axes : 068 020 046 degrees QTc Int : 428 ms NORMAL SINUS RHYTHM POSSIBLE LEFT ATRIAL ENLARGEMENT BORDERLINE ECG WHEN COMPARED WITH ECG OF 06-FEB-2018 07:38, NO SIGNIFICANT CHANGE WAS FOUND Confirmed by CATHERINE MCKEON, SERGE ([id number]) on 05/07/2019 1:28:17 PM Referred By: Confirmed By:SERGE ALEXANDER MD
== END 2019-05-06 19:45 | disposition home or self-care (01) ==
LOC: JER 18:16 → JERFT 18:16
PROC: 3E0233Z Introduction of Anti-inflammatory into Muscle, Percutaneous Approach (ICD-10-PCS; principal; 2019-05-06)
DX: M94.0 Chondrocostal junction syndrome [Tietze] (principal)
CPT/HCPCS: 71046-TC-FY; 93005; 93010; 96372; 99281-25

== ENCOUNTER 2019-05-21 07:37 | Emergency (ER) | payer OTHER ==
[2019-05-21 07:47] VITALS: BP 119/82; PULSE 69; TEMP 97.7; BMI 29.5
[2019-05-21] MEDS ORDERED: KETOROLAC TROMETHAMINE 60 MG/2 ML VIAL IM ONE (07:59)
[2019-05-21] MEDS ORDERED: KETOROLAC TROMETHAMINE 60 MG/2 ML VIAL ONE ×2 (08:03→08:04)
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
== END 2019-05-21 10:05 | disposition home or self-care (01) ==
LOC: JER 07:37
PROC: 3E0233Z Introduction of Anti-inflammatory into Muscle, Percutaneous Approach (ICD-10-PCS; principal; 2019-05-21)
DX: S93.402A Sprain of unspecified ligament of left ankle, initial encounter (principal); V48.4XXA Person boarding or alighting a car injured in noncollision transport accident, initial encounter; Y92.414 Local residential or business street as the place of occurrence of the external cause; Y93.89 Activity, other specified; Y99.8 Other external cause status; X50.1XXA Overexertion from prolonged static or awkward postures, initial encounter
CPT/HCPCS: 73610-TC-LT-FY; 73630-TC-LT; 99282-25

== ENCOUNTER 2020-10-17 18:01 | Emergency (ER) | payer OTHER ==
[2020-10-17 18:31] VITALS: BP 112/58; PULSE 87; TEMP 97.8; BMI 26.6
[2020-10-17] MEDS ORDERED: KETOROLAC TROMETHAMINE 30 MG/1 ML VIAL ONE (18:47)
[2020-10-17] MEDS ORDERED: KETOROLAC TROMETHAMINE 30 MG/1 ML VIAL IM ONE (18:47)
== END 2020-10-17 18:54 | disposition home or self-care (01) ==
LOC: JERFT 18:01
PROC: 3E0233Z Introduction of Anti-inflammatory into Muscle, Percutaneous Approach (ICD-10-PCS; principal; 2020-10-17)
DX: K08.89 Other specified disorders of teeth and supporting structures (principal)
CPT/HCPCS: 99284-25

== ENCOUNTER 2021-05-13 20:41 | Emergency (ER) | payer OTHER ==
[2021-05-13 20:53] VITALS: BP 115/74; PULSE 80; TEMP 98; BMI 26.6
[2021-05-13] MEDS ORDERED: ACETAMINOPHEN 1000 MG/100 ML VIAL (NON FORMULARY) IVPB ONE (22:05)
[2021-05-13] MEDS ORDERED: ONDANSETRON 4 MG/2 ML VIAL IVPUSH ONE (22:05)
[2021-05-13] MEDS ORDERED: MAG HYDROX/AL HYDROX/SIMETH 30 ML UNIT-DOSE CUP PO ONE (22:05)
[2021-05-13] MEDS ORDERED: SODIUM CHLORIDE 0.9% 500 ML INFUS.BAG IV ONE (22:05)
[2021-05-13] MEDS ORDERED: FAMOTIDINE 20 MG/50 ML IVPB 20 MG/50 ML MG IVPB ONE ×2 (22:05→23:26)
[2021-05-13 22:42] LABS: BASO % 1.3 % (0-2.0); EOS % 3.4 % (0-4.5); HEMATOCRIT 33.4 % (32.4-45.2); HEMOGLOBIN 11.2 GM/dL (10.7-15.3); LYMPH % 21.5 % (8-40); MCH 31.8 pg (25.7-33.7); MCHC 33.5 g/dl (32.0-36.0); MEAN CELL VOLUME 94.8 fl (80-96); MONO % 8.4 % (3.8-10.2); NEUT % 65.4 % (42.8-82.8); RBC 3.52 M/mm3 (3.60-5.2); RDW 15.6 % (11.6-15.6); WHITE BLOOD COUNT 5.5 K/mm3 (4.0-10.0)
[2021-05-13 22:55] LABS: CHLORIDE 110 mmol/L (98-107); SODIUM 138 mmol/L (136-145)
[2021-05-13 22:57] LABS: ALBUMIN 3.7 g/dl (3.4-5.0); CALCIUM 8.2 mg/dL (8.5-10.1); CO2 23 mmol/L (21-32); LIPASE 88 U/L (73-393)
[2021-05-13 22:59] LABS: GLUCOSE,RANDOM 75 mg/dL (74-106)
[2021-05-13 23:00] LABS: CREATININE 0.8 mg/dL (0.55-1.3); SGOT/AST 49 U/L (15-37); SGPT/ALT 29 U/L (13-61)
[2021-05-13 23:03] LABS: ALK PHOS 64 U/L (45-117); BILIRUBIN,TOTAL 0.7 mg/dL (0.2-1); TOT PROT 8.2 g/dl (6.4-8.2)
[2021-05-13 23:25] LABS: INR 1.13 (0.83-1.09); PROTHROMBIN TIME (PATIENT) 13.6 SEC (9.7-13.0)
[2021-05-13] MEDS ORDERED: ACETAMINOPHEN INJECTION 100 ML IVPB ONE (23:26)
[2021-05-13] MEDS ORDERED: MAG HYDROX/AL HYDROX/SIMETH 30 ML UNIT-DOSE CUP ONE (23:26)
[2021-05-13] MEDS ORDERED: ONDANSETRON 4 MG/2 ML VIAL ONE (23:26)
[2021-05-13 23:28] LABS: ACTIVATED PTT 26.3 SECONDS (25.2-36.5)
[2021-05-13 23:36] LABS: ANION GAP 6 MMOL/L (8-16)
[2021-05-13 23:43] LABS: PLATELET ESTIMATE DECREASED
[2021-05-13 23:45] LABS: MEAN PLT VOLUME 10.2 fl (7.5-11.1); PLATELET COUNT 99 10^3/uL (134-434)
[2021-05-13 23:51] LABS: EPI CELLS 21 /uL (0-25.1); HYALINE CASTS 7 /uL (0-3.1); PH,URINE 6.5 (5.0-8.0); URINE APPEARANCE CLOUDY; URINE BACTERIA 354 /uL (0-1359); URINE BILIRUBIN NEGATIVE (NEGATIVE); URINE COLOR YELLOW; URINE GLUCOSE (UA) NEGATIVE (NEGATIVE); URINE KETONE 1+ (NEGATIVE); URINE LEUK ESTERASE TRACE (NEGATIVE); URINE NITRITE NEGATIVE (NEGATIVE); URINE PROTEIN TRACE (NEGATIVE); URINE RBC 6 /uL (0-23.9); URINE WBC 139 /uL (0-25.8)
== END 2021-05-14 00:25 | disposition left against medical advice (07) ==
LOC: JER 20:41
PROC: 3E0333Z Introduction of Anti-inflammatory into Peripheral Vein, Percutaneous Approach (ICD-10-PCS; principal; 2021-05-13)
PROC: 3E033GC Introduction of Other Therapeutic Substance into Peripheral Vein, Percutaneous Approach (ICD-10-PCS; 2021-05-13)
PROC: 3E033GC Introduction of Other Therapeutic Substance into Peripheral Vein, Percutaneous Approach (ICD-10-PCS; 2021-05-13)
DX: R10.9 Unspecified abdominal pain (principal)
CPT/HCPCS: 36415; 71045-TC-FY; 80053; 81003; 82550; 82553; 83690; 84132; 84484; 85025; 85610; 85730; 86850; 86900; 86901; 87086; 93005; 93010; 99285-25; J0131

== ENCOUNTER 2022-06-28 18:44 | Emergency (ER) | payer OTHER ==
[2022-06-28 19:16] VITALS: BP 130/90; PULSE 76; RESP 15; TEMP 98.5; BMI 26.6
== END 2022-06-28 21:28 | disposition home or self-care (01) ==
LOC: JERFT 18:44 → JER 18:44 → JERFT 21:28
DX: L73.9 Follicular disorder, unspecified (principal)
CPT/HCPCS: 99281-25

== ENCOUNTER 2022-10-03 10:29 | Emergency (ER) | payer OTHER ==
[2022-10-03 11:20] VITALS: BP 117/78; PULSE 70; RESP 18; TEMP 97.9; BMI 28.1
[2022-10-03 12:56] LABS: HCG,QUALITATIVE URINE Positive
[2022-10-03 12:58] LABS: BASO % 0.9 % (0-2.0); EOS % 3.8 % (0-4.5); HEMATOCRIT 30.9 % (32.4-45.2); HEMOGLOBIN 10.2 GM/dL (10.7-15.3); MCH 29.8 pg (25.7-33.7); MCHC 32.8 g/dl (32.0-36.0); MEAN CELL VOLUME 90.7 fl (80-96); MEAN PLT VOLUME 9.8 fl (7.5-11.1); MONO % 7.3 % (3.8-10.2); PLATELET COUNT 109 10^3/uL (134-434); RBC 3.41 M/mm3 (3.60-5.2); RDW 15.5 % (11.6-15.6); WHITE BLOOD COUNT 3.4 K/mm3 (4.0-10.0)
[2022-10-03 13:04] LABS: URINE APPEARANCE CLEAR; URINE BILIRUBIN NEGATIVE (NEGATIVE); URINE COLOR YELLOW; URINE GLUCOSE (UA) NEGATIVE (NEGATIVE); URINE KETONE TRACE (NEGATIVE)
[2022-10-03 13:05] LABS: URINE LEUK ESTERASE TRACE (NEGATIVE); URINE NITRITE POSITIVE (NEGATIVE); URINE PROTEIN TRACE (NEGATIVE)
[2022-10-03 13:26] LABS: CALCIUM 8.8 mg/dL (8.5-10.1)
[2022-10-03 13:27] LABS: BLOOD UREA NITROGEN 10.4 mg/dL (7-18)
[2022-10-03 13:30] LABS: CREATININE 0.7 mg/dL (0.55-1.3)
[2022-10-03 16:09] LABS: EPI CELLS 10 /uL (0-25.1); HYALINE CASTS 10 /uL (0-3.1); URINE BACTERIA 3373 /uL (0-1359); URINE RBC 3 /uL (0-23.9); URINE WBC 251 /uL (0-25.8)
== END 2022-10-03 14:00 | disposition left against medical advice (07) ==
LOC: JER 10:29
DX: O20.9 Hemorrhage in early pregnancy, unspecified (principal); Z3A.01 Less than 8 weeks gestation of pregnancy
CPT/HCPCS: 36415; 80048; 81003; 84702; 84703; 85025; 86850; 86900; 86901; 87086; 87186; 99283-25

== ENCOUNTER 2023-06-06 09:24 | Emergency (ER) | payer OTHER ==
[2023-06-06 09:33] VITALS: BP 154/105; PULSE 76; RESP 18; TEMP 97.8; BMI 33.6
== END 2023-06-06 11:53 | disposition home or self-care (01) ==
LOC: JERFT 09:24
DX: R05.1 Acute cough (principal); R09.89 Other specified symptoms and signs involving the circulatory and respiratory systems; Z20.822 Contact with and (suspected) exposure to COVID-19
CPT/HCPCS: 0241U-QW; 99283-25

== ENCOUNTER 2023-06-09 19:59 | Emergency (ER) | payer OTHER ==
[2023-06-09 20:09] VITALS: TEMP 98.1; BMI 33.3
[2023-06-09] MEDS ORDERED: ACETAMINOPHEN 1000 MG/100 ML BAG IVPB ONE (20:32)
[2023-06-09] MEDS ORDERED: LABETALOL HCL 5 MG/1 ML (100MG/20 ML VIAL) IVPUSH ONE ×3 (20:43→22:19)
[2023-06-09] MEDS ORDERED: MAGNESIUM SULF 50% (8.12 MEQ/2 ML-1 GM VIAL) IVPB ONE ×2 (20:43→21:57)
[2023-06-09] MEDS ORDERED: ACETAMINOPHEN INJECTION 100 ML IVPB ONE (21:05)
[2023-06-09] MEDS ORDERED: MAGNESIUM SULFATE IN WATER 2 GM/50 ML IVPB IVPB ONE ×2 (21:06→22:04)
[2023-06-09] MEDS ORDERED: LABETALOL HCL 20 MG/4 ML VIAL ONE (21:06)
[2023-06-09 21:28] LABS: BASO % 0.9 % (0-2.0); EOS % 3.8 % (0-4.5); HEMATOCRIT 31.2 % (32.4-45.2); HEMOGLOBIN 10.2 GM/dL (10.7-15.3); LYMPH % 21.5 % (8-40); MCH 26.6 pg (25.7-33.7); MCHC 32.6 g/dl (32.0-36.0); MEAN CELL VOLUME 81.7 fl (80-96); MEAN PLT VOLUME 8.6 fl (7.5-11.1); MONO % 6.7 % (3.8-10.2); NEUT % 67.1 % (42.8-82.8); PLATELET COUNT 257 10^3/uL (134-434); RBC 3.82 M/mm3 (3.60-5.2); WHITE BLOOD COUNT 7.3 K/mm3 (4.0-10.0)
[2023-06-09 21:45] LABS: POTASSIUM 4.1 mmol/L (3.5-5.1)
[2023-06-09 21:48] LABS: ALBUMIN 3.1 g/dl (3.4-5.0); BLOOD UREA NITROGEN 15.5 mg/dL (7-18); MAGNESIUM 1.7 mg/dL (1.8-2.4)
[2023-06-09 21:53] LABS: BILIRUBIN,TOTAL 0.4 mg/dL (0.2-1); TOT PROT 7.5 g/dl (6.4-8.2)
[2023-06-09 21:59] VITALS: RESP 18
[2023-06-09 21:59] LABS: URIC ACID 5.5 mg/dL (2.6-7.2)
[2023-06-09 22:35] VITALS: BP 159/92; PULSE 81
[2023-06-09 23:10] LABS: EPI CELLS 13 /uL (0-25.1); HYALINE CASTS 1 /uL (0-3.1); PH,URINE 6.5 (5.0-8.0); URINE APPEARANCE CLEAR; URINE BACTERIA 186 /uL (0-1359); URINE BILIRUBIN NEGATIVE (NEGATIVE); URINE COLOR YELLOW; URINE GLUCOSE (UA) NEGATIVE (NEGATIVE); URINE KETONE NEGATIVE (NEGATIVE); URINE LEUK ESTERASE 2+ (NEGATIVE); URINE NITRITE NEGATIVE (NEGATIVE); URINE PROTEIN NEGATIVE (NEGATIVE); URINE RBC 24 /uL (0-23.9); URINE WBC 351 /uL (0-25.8)
[2023-06-09] MEDS ORDERED: ACETAMINOPHEN/CAFFEINE/BUTALBITAL 1 TAB PO ONE ×2 (23:37)
[2023-06-09] MEDS ORDERED: CEPHALEXIN MONOHYDRATE 500 MG CAPSULE (UD) PO ONE (23:38)
[2023-06-10] MEDS ORDERED: CEPHALEXIN MONOHYDRATE 500 MG CAPSULE (UD) ONE (00:34)
[2023-06-10] MEDS ORDERED: ACETAMINOPHEN/CAFFEINE/BUTALBITAL 1 TAB ONE (00:35)
[2023-06-10] MEDS ORDERED: NIFEdipine E.R. 30 MG TABLET PO SCH ×2 (00:50→10:00)
== END 2023-06-10 01:24 | disposition home or self-care (01) ==
LOC: JER 19:59
PROC: 3E033NZ Introduction of Analgesics, Hypnotics, Sedatives into Peripheral Vein, Percutaneous Approach (ICD-10-PCS; principal; 2023-06-09)
PROC: 3E033GC Introduction of Other Therapeutic Substance into Peripheral Vein, Percutaneous Approach (ICD-10-PCS; 2023-06-09)
PROC: 3E033GC Introduction of Other Therapeutic Substance into Peripheral Vein, Percutaneous Approach (ICD-10-PCS; 2023-06-09)
PROC: 3E033GC Introduction of Other Therapeutic Substance into Peripheral Vein, Percutaneous Approach (ICD-10-PCS; 2023-06-09)
PROC: 3E033GC Introduction of Other Therapeutic Substance into Peripheral Vein, Percutaneous Approach (ICD-10-PCS; 2023-06-09)
DX: O99.355 Diseases of the nervous system complicating the puerperium (principal); R51.9 Headache, unspecified; O16.5 Unspecified maternal hypertension, complicating the puerperium; O99.73 Diseases of the skin and subcutaneous tissue complicating the puerperium; L56.8 Other specified acute skin changes due to ultraviolet radiation
CPT/HCPCS: 36415; 70450-TC; 80053; 81003; 83615; 83735; 84550; 85025; 93005; 93010; 99285-25

== ENCOUNTER 2023-07-11 13:16 | Emergency (ER) | payer OTHER ==
[2023-07-11 13:30] VITALS: BP 169/96; PULSE 76; RESP 16; TEMP 97.9; BMI 31.7
[2023-07-11] MEDS ORDERED: IBUPROFEN 600 MG TABLET (FP) PO ONE ×2 (13:49→14:07)
[2023-07-11] MEDS ORDERED: ACETAMINOPHEN WITH CODEINE 300MG/30MG TABLET PO ONE (13:50)
[2023-07-11] MEDS ORDERED: ACETAMINOPHEN WITH CODEINE 300MG/30MG TABLET ONE (14:08)
== END 2023-07-11 14:12 | disposition home or self-care (01) ==
LOC: JERFT 13:16
DX: K08.89 Other specified disorders of teeth and supporting structures (principal); S02.5XXA Fracture of tooth (traumatic), initial encounter for closed fracture; X58.XXXA Exposure to other specified factors, initial encounter
CPT/HCPCS: 99283-25

== ENCOUNTER 2024-05-12 11:12 | Emergency (ER) | payer OTHER ==
[2024-05-12 11:34] VITALS: BP 136/91; PULSE 96; RESP 20; TEMP 98.1; BMI 37.8
[2024-05-12 14:18] LABS: PH,URINE 6.5 (5.0-8.0); URINE APPEARANCE CLEAR; URINE BILIRUBIN NEGATIVE (NEGATIVE); URINE COLOR YELLOW; URINE GLUCOSE (UA) NEGATIVE (NEGATIVE); URINE KETONE TRACE (NEGATIVE); URINE LEUK ESTERASE NEGATIVE (NEGATIVE); URINE NITRITE NEGATIVE (NEGATIVE); URINE PROTEIN TRACE (NEGATIVE)
[2024-05-12 14:21] LABS: HCG,QUALITATIVE URINE NEGATIVE
== END 2024-05-12 14:51 | disposition home or self-care (01) ==
LOC: JERFT 11:12
DX: Z32.02 Encounter for pregnancy test, result negative (principal)
CPT/HCPCS: 36415; 81003; 84703; 87086; 87186; 99283-25